=== PATIENT | female | born 1975 | race Caucasian/White ===

== ENCOUNTER 2016-08-04 12:42 | Day surgery (SDC) | payer OTHER ==
[2016-08-03 14:41] LABS: BUN (BLOOD UREA NITROGEN) 18 MG/DL (6-23); CALCIUM, SERUM 8.9 MG/DL (8.5-10.4); CHLORIDE, SERUM 110 MMOL/L (96-112); CO2 (CARBON DIOXIDE) 25 MMOL/L (24-34); CREATININE 0.67 MG/DL (0.55-1.02); GFR AFRICAN AMERICAN 128 ML/MIN (>=60); GFR NON AFRICAN AMERICAN 111 ML/MIN (>=60); GLUCOSE, SERUM 79 MG/DL (60-99); POTASSIUM, SERUM 4.1 MMOL/L (3.5-5.3); SODIUM, SERUM 144 MMOL/L (135-148)
--- NOTE | ~2016-08-04 | OP ---
Record Of Operation [facility] [address] [place]. [address] NAME: SANDRA PIERRE : 77 STATUS : [place] [facility] [place] PAT#: [id number] AGE: 40 ADM/REG DATE : 08/04/16 MR#: [id number] REPORT SERV DATE: 08/04/16 DICTATED BY: IGOR ALFRED III DATE: 08/04/16 REPORT STATUS : Draft TRANSCRIBED BY: MODL DATE: 08/04/16 DATE OF PROCEDURE: 08/04/2016 PREOPERATIVE DIAGNOSIS: Left ureterovesical junction calculus. POSTOPERATIVE DIAGNOSES: 1. Passed stone. 2. Anatomy consistent with prior right ureteral implant. SURGEON: Igor Alfred M.D. PROCEDURE: Cystoscopy, bilateral retrograde pyelograms, and left ureteroscopy. DESCRIPTION OF PROCEDURE: After consent was obtained, the patient was identified, and she was taken to the OR and put to sleep. She was positioned in the low lithotomy position and prepped and draped in the usual fashion. The 20-Cuban cystoscope was made ready and inserted into the bladder. The bladder was inspected. Both ureteral orifices were normally positioned. A cone-tipped ureteral catheter was flushed with contrast and inserted into the left ureteral orifice. A retrograde study was obtained, which appeared normal. The patient decided to perform ureteroscopy secondary to the patient's complaints and preop of severe pain. Therefore, a Glidewire was passed up the left ureter over which a flexible ureteroscope was advanced up into the renal pelvis. The wire was removed. Flexible ureteroscopy was performed. On the way out, no stones were noted, and the transmural ureter was widely patent, consistent with a recently passed stone. Because of complaints of pain, I decided to perform a right retrograde pyelogram. The ureteral orifice was cannulated with a cone-tipped ureteral catheter, but was unable to inject any contrast. The bladder was then inspected and what appeared to be ureteral orifice was located on the back wall/dome of the bladder. This area was examined and contracted consistent with the ureter. Retrograde study was performed of this orifice, which showed a normal ureter and complete renal collecting system. There were no filling defect consistent with stone. The findings were consistent with a ureteral reimplant on the right. The bladder was then drained. The scope removed. The patient was awakened and taken to recovery in stable condition. PH/MODL Igor Alfred III, M.D. / [id number] CC: Igor Alfred III, M.D. NO PCP
[~2016-08-04 12:42] MED LIST: ALORA0.05 MG PO-DS; AVINZA30 PO; ELMIRON 100 MG100 MG OR; ESTRACE0.5 MG PO; ESTRADIOL0.05 MG PO; FLOMAX4 PO; LEXAPRO20 PO; LORTAB10 PO; MEP50TAB PO; MINIVELLE1 EACH TOP; PR25 PO; TORATAB PO; ZANAFLEX 4 MG TA4 MG PO; ZESTRIL10 MG PO; ZOFRAN4 PO
== END 2016-08-04 23:59 | disposition home or self-care (01) ==
LOC: SDC 12:42
PROVIDERS: Urology
PROC: BT1FZZZ Fluoroscopy of Left Kidney, Ureter and Bladder (ICD-10-PCS; 2016-08-04)
PROC: 0TJ58ZZ Inspection of Kidney, Via Natural or Artificial Opening Endoscopic (ICD-10-PCS; principal; 2016-08-04 14:00)
PROC: 0T778ZZ Dilation of Left Ureter, Via Natural or Artificial Opening Endoscopic (ICD-10-PCS; 2016-08-04 14:00)
DX: N20.1 Calculus of ureter (principal); I10 Essential (primary) hypertension; K58.9 Irritable bowel syndrome, unspecified; K21.9 Gastro-esophageal reflux disease without esophagitis; Z79.899 Other long term (current) drug therapy; Z79.890 Hormone replacement therapy; Z88.5 Allergy status to narcotic agent
CPT/HCPCS: 74420; 80048; 93005; A9270-GY; C1758; C1769; J1885; J2250; J2405; J2710; J3010; Q9967